=== PATIENT | male | born 1940 | race Caucasian/White ===

== ENCOUNTER 2019-08-24 12:38 | Inpatient (IN) ==
[2019-08-24 13:22] LABS: Basophils # (auto) 0.04 K/uL (0-0.2); Basophils % (auto) 0.3 %; Eosinophils # (auto) 0.05 K/uL (0-0.5); Eosinophils % (auto) 0.3 %; Hematocrit (blood only) 40.2 % (42-52); Hemoglobin 12.6 g/dL (14.0-18.0); Immature Granulocytes # (auto) 0.06 K/uL (0.00-0.02); Immature Granulocytes % (auto) 0.4 %; Lymphocytes # (auto) 1.45 K/uL (1.2-3.4); Mean Corpuscular Hemoglobin 26.3 pg (25-34); Mean Corpuscular Hgb Conc 31.3 g/dL (32-36); Mean Corpuscular Volume 83.8 fL (80-100); Mean Platelet Volume 9.3 fL (7.4-10.4); Monocytes % (auto) 6.2 %; Neutrophils # (auto) 12.01 K/uL (1.4-6.5); Neutrophils % (auto) 82.8 %; Platelet Count 277 K/uL (130-400); RDW Coefficient of Variation 16.9 % (11.5-14.5); RDW Standard Deviation 51.5 fL (36.4-46.3); White Blood Count 14.51 K/uL (4.8-10.8)
[2019-08-24 13:33] LABS: Partial Thromboplastin Ratio 0.9; Partial Thromboplastin Time 23.1 Seconds (21.0-31.0); Prothrombin Time 10.4 Seconds (9.0-12.0)
[2019-08-24 13:39] LABS: Albumin Level 3.5 gm/dl (3.4-5.0); Calcium 9.3 mg/dl (8.5-10.1); Creatinine Clr Calc Pharmacy 57.2 ml/min; Est GFR (African American) 69.3; Est GFR (Non-African American) 59.8; Potassium 3.9 mmol/L (3.5-5.1)
[2019-08-24 13:44] LABS: Albumin Globulin Ratio 0.9 (0.9-2); Bilirubin,Total 0.4 mg/dl (0.2-1); Globulin 4.1 gm/dl (2.5-4.0); Total Protein 7.6 gm/dl (6.4-8.2); Troponin I 0.022 ng/ml (0-0.045)
[2019-08-24] MEDS ORDERED: IOVERSOL 100ml IV PRN (13:53)
--- NOTE | 2019-08-24 14:07 | CT Scan Report ---
CT angio chest PE protocol CT DOSE: 524.77 mGycm HISTORY: Dyspnea Persistent hemoptysis with recent travel TECHNIQUE: Multiaxial CT images of the chest were performed following the intravenous administration of contrast to evaluate the pulmonary arteries. Maximal intensity projection images were also obtaine d. A dose lowering technique was utilized adhering to the principles of ALARA. COMPARISON STUDY: None. FINDINGS: Thoracic aorta shows minimal atherosclerotic change. The pulmonary vasculature enhances appropriately. There are no filling defects. There are findings of a diffuse parenchymal infiltrate involving the right lower lobe. There is less prominent involvement and/or atelectatic change of the components of the right middle lobe. Lungs otherwise appear clear. IMPRESSION: 1. No evidence for pulmonary embolus. 2. Diffuse parenchymal infiltrate of the right lower lobe and to a lesser extent medial right middle lobe. The above report was generated using voice recognition software. It may contain grammatical, syntax or spelling errors. Electronically signed by: Gus Mcnally M.D. 08/24/2019 2:06 PM
[2019-08-24] MEDS ORDERED: cefTRIAXone SODIUM 1,000 MG/50 ML BAG IV STA (15:05)
[2019-08-24] MEDS ORDERED: LEVOFLOXACIN/D5W 750 MG/150 ML BAG IV SCH (15:15)
[2019-08-24 16:16] LABS: Influenza A virus by PCR Neg for Influ A (Neg); Influenza B virus by PCR Neg for Influ B (Neg)
--- NOTE | 2019-08-24 16:39 | XRay Report ---
XR chest 1V portable CLINICAL HISTORY: Dyspnea COMPARISON STUDY: CT scan dated 08/24/2019 FINDINGS: The heart is enlarged. There are old right-sided rib fractures. There is radiographic evide nce of emphysema.[There are right lower lobe airspace opacities, suspicious for pneumonia. Films subs equent to treatment are recommended in follow-up. There is blunting of the right lateral costophrenic angle and a trace effusion cannot be excluded. IMPRESSION: 1. Cardiomegaly and pulmonary emphysema 2. Right lower lung zone airspace opacity suspicious for a pneumonia. Imaging subsequent to treatment is recommended in follow-up Electronically signed by: Augustine Sepulveda M.D. 08/24/2019 4:38 PM
--- NOTE | 2019-08-24 16:49 | History & Physical Report ---
Date of Service August 24, 2019 Assessment & Plan (1) Hemoptysis: (2) Pneumonia: Pt is 78 y/o M with PMH COPD on 2L oxygen HS, CAD, SD s/p stents x 4 (11/17/08 & 11/29/2009), HTN, dyslipidemia, hypothyroidism, GERD, gout, hypothyroidism, basal cell skin carcinoma presented to ER with complaint of hemoptysis today. Reports approx 13 episodes of hemoptysis starting with pink tinged sputum and last episode red blood clot. Patient reports chronic baseline white productive cough and denies any increased cough or sputum production. Denies fever/chills increased SOB or CP. In ER pt afebrile, P: 96 down to 73, R: 18, BP: 148/67, 90-93% on RA. WBC: 14, H/H: 12.6/40, PLT: 277, PT/INR and PTT WNL Negative influenza swab CTA CHEST: 1. No evidence for pulmonary embolus. 2. Diffuse parenchymal infiltrate of the right lower lobe and to a lesser extent medial right middle lobe. -In ER given Rocephin, Levaquin -MRSA swab -Sputum culture -Rocephin, azithromycin -Duonebs -Closely monitor for increased hemoptysis -Pulmonology consult -CBC, BMP in a.m. (3) COPD (chronic obstructive pulmonary disease): O2 dependent at 2 L at bedtime Denies increased shortness of breath, increased cough or sputum production. Patient reports chronic wheezing at baseline and feels he is at his baseline -Duonebs -Continue chronic prednisone 10 mg daily -Continue Singulair, home inhalers, however will hold Spiriva since on duonebs -Hold home azithromycin -Continue supplemental oxygen at bedtime -Supplemental oxygen as needed (4) Diabetes mellitus, type II: -A1c in a.m. -Hold metformin -NovoLog sliding scale per protocol (5) CAD (coronary artery disease): H/O SD. S/P stent x 4 in 11/17/2008, 11/29/[address] changes, troponin 0 0.02. Denies chest pain -Continue isosorbide, metoprolol, Crestor -Continue Plavix, aspirin with close monitoring for any increased hemoptysis (6) HTN (hypertension): -Continue lisinopril, metoprolol (7) Dyslipidemia: -Continue Crestor (8) Hypothyroidism: -TSH in a.m. -Continue levothyroxine (9) Gout: -Continue allopurinol (10) GERD (gastroesophageal reflux disease): -Continue PPI DVT Prophylaxis -SCDs for now Full Code as per discussion with pt Follows with Dr Minh Lucio in [place] for routine care Follows with Dr Vargas Clarke in [place] for pulmonology Pt was seen and care coordinated with Dr Rubio. See addendum History of Present Illness Chief Complaint: Hemoptysis Primary Care Provider: Minh Lucio MD Pt is 78 y/o M with PMH COPD on 2L oxygen HS, CAD, SD s/p stents x 4 (11/17/08 & 11/29/2009), HTN, dyslipidemia, hypothyroidism, GERD, gout, hypothyroidism, basal cell skin carcinoma presented to ER with complaint of hemoptysis. Patient reports chronic baseline white productive cough and denies any increased cough o r sputum production. Patient states today started with hemoptysis which appeared to be pink-tinged mixed in sputum approximately the size of a quarter and has had approximately 13 episodes of this. Reports last episode of hemoptysis appeared like red blood clot. Denies any increased shortness of breath. Reports chronic wheezing at baseline. States during day oxygen sats on home pulse oximeter are 92-93% on room air. Denies any chest pain. Patient reports recently COPD has seemed controlled and has not had to use albuterol for 1 month. States last COPD flare was in November 2018 which required hospitalization. Has been on chronic prednisone 10 mg daily and Zithromax 250 mg 3 times a week. Patient is from [place] and traveled to [place] 08/17/2019 and reports took 2 days [address] time in car with frequent stops. Denies history DVT, PE. Denies recent surgery, injury, trauma. Reports chronic intermittent loose stools, denies any recent changes or melena, hematochezia. Denies ill contacts. Denies fever/chills, diaphoresis, N/V/C, ELISE, dizziness, syncope, vision changes, neck pain, palpitations, sore throat, choking, otalgia, rhinorrhea, abdominal pain, paresthesias, weakness, extremity weakness, extremity edema, rashes, urinary symptoms. Quit smoking 10 years ago. Previous 1.5ppd x 50 years PCP: Dr Lucio Wet Process Assistant Head Miller: Dr Clarke Audio Visual Specialist: Dr Riley Allergies Allergy/AdvReac Type Severity Reaction Status Date / Time beclomethasone [From Qvar] Allergy Unknown Unverified 08/24/19 15:09 oxycodone Allergy Hallucinati Unverified 08/24/19 15:09 ng pravastatin [From Pravachol] AdvReac Cramping Unverified 08/24/19 15:09 of the Muscles Home Medications Home Medications Medication Instructions Recorded Confirmed Type Oxygen Home 08/24/19 08/24/19 History albuterol sulfate 2 puff INHALATION Q6H PRN 08/24/19 08/24/19 History albuterol sulfate 2.5 mg INHALATION QID PRN 08/24/19 08/24/19 History allopurinol 300 mg PO QAM 08/24/19 08/24/19 History aspirin 81 mg PO QAM 08/24/19 08/24/19 History azithromycin 250 mg PO UD 08/24/19 08/24/19 History cholecalciferol (vitamin D3) 5,000 unit PO QAM 08/24/19 08/24/19 History [Vitamin D3] clopidogrel 75 mg PO QAM 08/24/19 08/24/19 History fluticasone propion-salmeterol 1 inh INHALATION BID 08/24/19 08/24/19 History [Advair Diskus] guaifenesin 1,200 mg PO BID 08/24/19 08/24/19 History isosorbide mononitrate 30 mg PO QAM 08/24/19 08/24/19 History levothyroxine 150 mcg PO QAM 08/24/19 08/24/19 History lisinopril 20 mg PO QAM 08/24/19 08/24/19 History metformin 1,000 mg PO BIDM 08/24/19 08/24/19 History metoprolol succinate 50 mg PO QAM 08/24/19 08/24/19 History montelukast [Singulair] 10 mg PO PM 08/24/19 08/24/19 History pantoprazole [Protonix] 40 mg PO HS 08/24/19 08/24/19 History prednisone 10 mg PO QAM 08/24/19 08/24/19 History roflumilast [Daliresp] 250 mcg PO QAM 08/24/19 08/24/19 History rosuvastatin [Crestor] 10 mg PO UD 08/24/19 08/24/19 History tiotropium bromide [Spiriva with 1 cap INHALATION DAILY 08/24/19 08/24/19 History HandiHaler] trazodone 50 mg PO HS 08/24/19 08/24/19 History vitamin B complex 1 cap PO QAM 08/24/19 08/24/19 History Past Med/Surg History Medical History (Updated 08/24/19 @ 16:55 by Susan Lee) CAD (coronary artery disease) COPD (chronic obstructive pulmonary disease) O2 at 2L HS Diabetes mellitus, type II Dyslipidemia GERD (gastroesophageal reflux disease) Gout History of SD (myocardial infarction) HTN (hypertension) Hypothyroidism Surgical History (Updated 08/24/19 @ 16:52 by Elenita Justin PA-C) H/O heart artery stent History of appendectomy History of cardiac cath 11/17/08, 11/29/2009 Reports stents x 4 History of cataract surgery right eye History of eye surgery left eye. foreign body Family History (Updated 08/24/19 @ 16:54 by Elenita Justin PA-C) Brother Diabetes Skin cancer Coronary heart disease Sister Coronary heart disease Social History (Updated 08/24/19 @ 16:55 by Elenita Justin PA-C) Preferred Language: Yakut Communication Ability: Effective Shipping Manager Required: No Beliefs That Will Affect Care: None marital status: Current Living Situation: Spouse current occupational status: retired Other Information That Helps Us Care for You: No Feels Safe at Home: Yes Safety Concerns: Feels Safe At This Time Smoking Status: Former smoker Smoking End Date: Quit 2008. Previously smoked 1.5ppd x 50 years ; Hx Alcohol Use: No Hx Substance Use: No Review of Systems Review of Systems: All systems reviewed & are unremarkable except as noted in HPI & below Physical Exam Physical Exam: General: no acute distress, WDWN Head: normocephalic, atraumatic Eyes: Left pupil irregular (chronic) R PERRL, EOM's intact, conjunctiva non- injected, anicteric ENT: normal inspection external ears, nose, mucous membranes moist Neck: supple, trachea midline Lungs: Scattered wheezing throughout, slightly diminished breath sounds right base, no respiratory distress, R: 20, 93% on RA CV: RRR, no murmur, no pretibial edema Abd: normal BS, soft, non-tender Ext: no cyanosis, no calf tenderness Neuro: A&O x 3, no focal deficits noted, normal affect Skin: warm, dry Results & Data Vital Signs (Past 12 Hours) Vital Signs Temp Pulse Pulse Resp BP BP Pulse Ox 08/24/19 16:30 80 17 91 08/24/19 16:20 93 08/24/19 16:10 76 22 94 08/24/19 16:01 73 18 92 08/24/19 16:00 73 20 155/90 H 93 08/24/19 15:50 74 23 94 08/24/19 15:40 73 23 93 08/24/19 15:34 73 19 93 08/24/19 15:33 36.6 C 73 19 144/82 H 92 08/24/19 15:30 72 22 94 08/24/19 15:20 72 20 94 08/24/19 15:10 72 17 91 08/24/19 15:00 71 21 08/24/19 14:50 74 18 08/24/19 14:48 73 18 145/78 H 08/24/19 14:40 73 18 92 08/24/19 14:39 73 16 145/78 H 93 08/24/19 14:30 72 24 92 08/24/19 14:20 76 19 93 08/24/19 14:10 76 23 94 08/24/19 14:03 78 20 93 08/24/19 13:40 75 20 08/24/19 13:30 77 21 08/24/19 13:20 79 19 08/24/19 13:16 79 22 08/24/19 13:05 93 08/24/19 12:41 36.6 C 96 H 18 148/67 H 90 Laboratory Results Short CBC 08/24/19 Range/Units 13:10 WBC 14.51 H (4.8-10.8) K/uL Hgb 12.6 L (14.0-18.0) g/dL Hct 40.2 L (42-52) % Plt Count 277 (130-400) K/uL BMP 08/24/19 13:10 Sodium 137 Potassium 3.9 Chloride 103 Carbon Dioxide 27 BUN 17 Creatinine 1.15 Glucose 108 H Calcium 9.3 Cardiac Enzymes 12/04/19 Range/Units 13:10 Troponin I 0.022 (0-0.045) ng/ml Liver Function 08/24/19 Range/Units 13:10 Total Bilirubin 0.4 (0.2-1) mg/dl AST 17 (15-37) U/L ALT 27 (12-78) U/L Alkaline Phosphatase 50 (45-117) U/L Albumin 3.5 (3.4-5.0) gm/dl Diagnostic Findings CTA CHEST: IMPRESSION: 1. No evidence for pulmonary embolus. 2. Diffuse parenchymal infiltrate of the right lower lobe and to a lesser extent medial right middle lobe. CXR: IMPRESSION: 1. Cardiomegaly and pulmonary emphysema 2. Right lower lung zone airspace opacity suspicious for a pneumonia. Imaging subsequent to treatment is recommended in follow-up ECG Rate (beats per minute): 77 Rhythm: sinus rhythm Findings: + LAFB Code Status & VTE Plan VTE Prophylaxis Plan VTE Prophylaxis will be ordered: Yes Supervising Physician Co-Signing Physician Notes I have seen and examined the patient and have discussed the case with the provider above. I agree with the assessment and plan as stated with the following exceptions. 78 yo M with COPD who is in the area from [facility] for a hunting trip presented with scant hemoptysis and was found to have pneumonia. He is not a current smoker. Denies wheezing, SOB or fevers and felt well enough to correa yesterday. Physical exam revealed a well-appearing man who appears younger than his stated age, clear lungs to auscultation throughout, normal heart exam with S1/2 heard and no evidence of m/g/r, no peripheral edema. Abdomen is soft, NTND. He appears spry and oriented. Agree with continuing Rocephin/Azithro for now and monitoring for clinical improvement/stability pending blood cultures. After discharge, patient has plans to drive back to [facility]. Close follow-up with primary care is recommended after discharge with a repeat CXR in 4-6 weeks to ensure complete resolution of infiltrates. DO Ramiro (1) Pneumonia Laterality: right Lung location: lower lobe of lung Pneumonia type: due to unspecified organism Qualified Code(s): J18.9 - Pneumonia, unspecified organism
--- NOTE | 2019-08-24 17:00 | Emergency Department Note ---
Entered by Susan Lee acting as a scribe for History of Present Illness General Chief complaint: GI Bleed Stated complaint: COUGHING UP BLOOD Source: patient Mode of arrival: ambulatory Limitations: no limitations History of Present Illness Provider complaint: Hemoptysis Onset (ago): hour(s) (today) Location: mouth Radiation: non-radiation Pain Consistency: + other (persistent) Quality: + other (hemoptysis) Associated symptoms: + shortness of breath (chronic) and + other (Denies: nosebleeds) Treatments prior to arrival: none The patient is an 78 year old male with a history of COPD and cardiac stents who presents to the Emergency Room with complaints of persistent hemoptysis starting today. The patient reports that he has had roughly 12 episodes of hemoptysis but no nosebleeds. He states that he is on Plavix for cardiac stents but otherwise has no history of cancer, blood clots, and clotting disorders. He notes that he is chronically short of breath secondary to COPD. The patient explains that he is visiting from [place] and drove up last week. No other exacerbating or remitting factors. Home Medications Home Medications Medication Instructions Recorded Confirmed Type Oxygen Home 08/24/19 08/24/19 History albuterol sulfate 2 puff INHALATION Q6H PRN 08/24/19 08/24/19 History albuterol sulfate 2.5 mg INHALATION QID PRN 08/24/19 08/24/19 History allopurinol 300 mg PO QAM 08/24/19 08/24/19 History aspirin 81 mg PO QAM 08/24/19 08/24/19 History azithromycin 250 mg PO UD 08/24/19 08/24/19 History cholecalciferol (vitamin D3) 5,000 unit PO QAM 08/24/19 08/24/19 History [Vitamin D3] clopidogrel 75 mg PO QAM 08/24/19 08/24/19 History fluticasone propion-salmeterol 1 inh INHALATION BID 08/24/19 08/24/19 History [Advair Diskus] guaifenesin 1,200 mg PO BID 08/24/19 08/24/19 History isosorbide mononitrate 30 mg PO QAM 08/24/19 08/24/19 History levothyroxine 150 mcg PO QAM 08/24/19 08/24/19 History lisinopril 20 mg PO QAM 08/24/19 08/24/19 History metformin 1,000 mg PO BIDM 08/24/19 08/24/19 History metoprolol succinate 50 mg PO QAM 08/24/19 08/24/19 History montelukast [Singulair] 10 mg PO PM 08/24/19 08/24/19 History pantoprazole [Protonix] 40 mg PO HS 08/24/19 08/24/19 History prednisone 10 mg PO QAM 08/24/19 08/24/19 History roflumilast [Daliresp] 250 mcg PO QAM 08/24/19 08/24/19 History rosuvastatin [Crestor] 10 mg PO UD 08/24/19 08/24/19 History tiotropium bromide [Spiriva with 1 cap INHALATION DAILY 08/24/19 08/24/19 History HandiHaler] trazodone 50 mg PO HS 08/24/19 08/24/19 History vitamin B complex 1 cap PO QAM 08/24/19 08/24/19 History Allergies Allergy/AdvReac Type Severity Reaction Status Date / Time beclomethasone [From Qvar] Allergy Unknown Unverified 08/24/19 15:09 oxycodone Allergy Hallucinati Unverified 08/24/19 15:09 ng pravastatin [From Pravachol] AdvReac Cramping Unverified 08/24/19 15:09 of the Muscles Past Med/Surg History Medical History (Updated 08/24/19 @ 16:55 by Susan Lee) CAD (coronary artery disease) COPD (chronic obstructive pulmonary disease) O2 at 2L HS Diabetes mellitus, type II Dyslipidemia GERD (gastroesophageal reflux disease) Gout History of AR (myocardial infarction) HTN (hypertension) Hypothyroidism Surgical History (Updated 08/24/19 @ 16:52 by Elenita Justin PA-C) H/O heart artery stent History of appendectomy History of cardiac cath 11/17/08, 11/29/2009 Reports stents x 4 History of cataract surgery right eye History of eye surgery left eye. foreign body Family History (Updated 08/24/19 @ 16:54 by Elenita Justin PA-C) Brother Diabetes Skin cancer Coronary heart disease Sister Coronary heart disease Social History (Updated 08/24/19 @ 16:55 by Elenita Justin PA-C) Preferred Language: Swiss Communication Ability: Effective Oven Heater Required: No Beliefs That Will Affect Care: None marital status: Current Living Situation: Spouse current occupational status: retired Other Information That Helps Us Care for You: No Feels Safe at Home: Yes Safety Concerns: Feels Safe At This Time Smoking Status: Former smoker Smoking End Date: Quit 2008. Previously smoked 1.5ppd x 50 years ; Hx Alcohol Use: No Hx Substance Use: No Review of Systems See HPI for pertinent positives & negatives. and A total of 10 systems reviewed and were otherwise negative Physical Exam Vital Signs Vital Signs - 24 hr 08/24/19 12:41 08/24/19 13:05 08/24/19 13:16 Temperature 36.6 C Temperature Source Oral Pulse Rate 96 H 79 Pulse Rate [Apical] Pulse Rate from SpO2 Sensor Pulse Rhythm Regular Respiratory Rate 18 22 Respiratory Effort / Characteristics Non-Labored Respiratory Depth Normal Respiratory Pattern Regular Blood Pressure 148/67 H Blood Pressure [Left Arm] Blood Pressure Mean 94 Blood Pressure Mean [Left Arm] Blood Pressure Position Sitting Pulse Oximetry 90 93 Oxygen Delivery Method Room Air Room Air Sepsis Recent Fever Within 48 Hours No Sepsis Action Taken by Nursing No Action Required 08/24/19 13:20 08/24/19 13:30 08/24/19 13:40 Temperature Temperature Source Pulse Rate 79 77 75 Pulse Rate [Apical] Pulse Rate from SpO2 Sensor Pulse Rhythm Respiratory Rate 19 21 20 Respiratory Effort / Characteristics Respiratory Depth Respiratory Pattern Blood Pressure Blood Pressure [Left Arm] Blood Pressure Mean Blood Pressure Mean [Left Arm] Blood Pressure Position Pulse Oximetry Oxygen Delivery Method Sepsis Recent Fever Within 48 Hours Sepsis Action Taken by Nursing 08/24/19 14:03 08/24/19 14:10 08/24/19 14:20 Temperature Temperature Source Pulse Rate 78 76 76 Pulse Rate [Apical] Pulse Rate from SpO2 Sensor 80 77 76 Pulse Rhythm Respiratory Rate 20 23 19 Respiratory Effort / Characteristics Respiratory Depth Respiratory Pattern Blood Pressure Blood Pressure [Left Arm] Blood Pressure Mean Blood Pressure Mean [Left Arm] Blood Pressure Position Pulse Oximetry 93 94 93 Oxygen Delivery Method Sepsis Recent Fever Within 48 Hours Sepsis Action Taken by Nursing 08/24/19 14:30 08/24/19 14:39 08/24/19 14:40 Temperature Temperature Source Pulse Rate 72 73 Pulse Rate [Apical] 73 Pulse Rate from SpO2 Sensor 73 72 Pulse Rhythm Respiratory Rate 24 16 18 Respiratory Effort / Characteristics Respiratory Depth Respiratory Pattern Blood Pressure Blood Pressure [Left Arm] 145/78 H Blood Pressure Mean Blood Pressure Mean [Left Arm] 100 Blood Pressure Position Pulse Oximetry 92 93 92 Oxygen Delivery Method Room Air Sepsis Recent Fever Within 48 Hours Sepsis Action Taken by Nursing 08/24/19 14:48 08/24/19 14:50 08/24/19 15:00 Temperature Temperature Source Pulse Rate 73 74 71 Pulse Rate [Apical] Pulse Rate from SpO2 Sensor Pulse Rhythm Respiratory Rate 18 18 21 Respiratory Effort / Characteristics Respiratory Depth Respiratory Pattern Blood Pressure 145/78 H Blood Pressure [Left Arm] Blood Pressure Mean 97 Blood Pressure Mean [Left Arm] Blood Pressure Position Pulse Oximetry Oxygen Delivery Method Sepsis Recent Fever Within 48 Hours Sepsis Action Taken by Nursing 08/24/19 15:10 08/24/19 15:20 08/24/19 15:30 Temperature Temperature Source Pulse Rate 72 72 72 Pulse Rate [Apical] Pulse Rate from SpO2 Sensor 72 73 70 Pulse Rhythm Respiratory Rate 17 20 22 Respiratory Effort / Characteristics Respiratory Depth Respiratory Pattern Blood Pressure Blood Pressure [Left Arm] Blood Pressure Mean Blood Pressure Mean [Left Arm] Blood Pressure Position Pulse Oximetry 91 94 94 Oxygen Delivery Method Sepsis Recent Fever Within 48 Hours Sepsis Action Taken by Nursing 08/24/19 15:33 08/24/19 15:34 08/24/19 15:40 Temperature 36.6 C Temperature Source Pulse Rate 73 73 73 Pulse Rate [Apical] Pulse Rate from SpO2 Sensor 71 73 73 Pulse Rhythm Respiratory Rate 19 19 23 Respiratory Effort / Characteristics Respiratory Depth Respiratory Pattern Blood Pressure 144/82 H Blood Pressure [Left Arm] Blood Pressure Mean 96 Blood Pressure Mean [Left Arm] Blood Pressure Position Pulse Oximetry 92 93 93 Oxygen Delivery Method Room Air Sepsis Recent Fever Within 48 Hours Sepsis Action Taken by Nursing 08/24/19 15:50 08/24/19 16:00 08/24/19 16:01 Temperature Temperature Source Pulse Rate 74 73 73 Pulse Rate [Apical] Pulse Rate from SpO2 Sensor 73 74 73 Pulse Rhythm Respiratory Rate 23 20 18 Respiratory Effort / Characteristics Respiratory Depth Respiratory Pattern Blood Pressure 155/90 H Blood Pressure [Left Arm] Blood Pressure Mean 118 Blood Pressure Mean [Left Arm] Blood Pressure Position Pulse Oximetry 94 93 92 Oxygen Delivery Method Sepsis Recent Fever Within 48 Hours Sepsis Action Taken by Nursing 08/24/19 16:10 08/24/19 16:20 08/24/19 16:30 Temperature Temperature Source Pulse Rate 76 80 Pulse Rate [Apical] Pulse Rate from SpO2 Sensor 76 75 77 Pulse Rhythm Respiratory Rate 22 17 Respiratory Effort / Characteristics Respiratory Depth Respiratory Pattern Blood Pressure Blood Pressure [Left Arm] Blood Pressure Mean Blood Pressure Mean [Left Arm] Blood Pressure Position Pulse Oximetry 94 93 91 Oxygen Delivery Method Sepsis Recent Fever Within 48 Hours Sepsis Action Taken by Nursing GENERAL: Sitting up in bed, talking in full sentences, blood covered tissues EYE EXAM: normal conjunctiva OROPHARYNX: no exudate, no erythema, lips, buccal mucosa, and tongue normal and mucous membranes are moist NECK: supple, no nuchal rigidity, no adenopathy, non-tender LUNGS: Wheezing bilaterally. Normal chest wall mechanics HEART: no murmurs, S1 normal and S2 normal ABDOMEN: abdomen soft, non-tender, normo-active bowel sounds, no masses, no rebound or guarding. BACK: Back is symmetrical on inspection and there is no deformity, no midline tenderness, no CVA tenderness. SKIN: no rashes and no bruising UPPER EXTREMITIES: upper extremities are grossly normal. LOWER EXTREMITIES: No pitting edema. NEURO EXAM: Normal sensorium, cranial nerves II-XII grossly intact, normal speech, no gross weakness of arms, no gross weakness of legs. Gross sensation intact. Course Course ED COURSE: Vital signs were reviewed and showed hypertension. The patients medical record was reviewed The above diagnostic studies were performed and reviewed. ED treatments and interventions as stated above. 1301: The patient was evaluated in room B2. A complete history and physical examination was performed. 1453: I reviewed the patient's case with Steven Diaz PA-C. Dr. Rubio will evaluate the patient for further management. 1455: Upon reevaluation, the patient is resting. I discussed my findings with the patient and he understands and agrees with the treatment plan. Based on the patients age, coexisting illnesses, exam and lab findings the decision to treat as an inpatient was made. The patient remained stable while under my care. The patient will be evaluated for further management. Consultations Consultation #1: I reviewed the patient's case with Steven Diaz PA-C. Dr. Rubio will evaluate the patient for further management. Time: 14:53 Administered Medications Levofloxacin/Dextrose (Levaquin/D5w) 750 mg in 150 mls @ 100 mls/hr IV Q24H JAMES Stop: 10/05/19 15:14 Last Infusion: 08/24/19 16:57 Dose: 0 mls/hr Documented by: [id number] Admin: 08/24/19 15:23 Dose: 100 mls/hr Documented by: [id number] Ioversol (Optiray 320 100ml) 94 ml IV ONCE PRN PRN Reason: Interaction Checking Stop: 08/28/19 13:52 Last Admin: 08/24/19 13:53 Dose: 94 ml Documented by: [id number] Discontinued Medications Ceftriaxone Sodium (Rocephin) 1,000 mg in 50 mls @ 100 mls/hr IV NOW STA Stop: 08/24/19 15:34 Last Infusion: 08/24/19 15:59 Dose: 0 mls/hr Documented by: [id number] Admin: 08/24/19 15:23 Dose: 100 mls/hr Documented by: [id number] Medical Decision Making Differential Diagnosis Differential diagnosis: Etiologies such as infections, reactive airway disease, pneumonia, pneumothorax, COPD, CHF, cardiac ischemia, pulmonary embolism, musculoskeletal, gastrointestinal, as well as others were entertained. Medical Records Attestation: I reviewed the patient's medical records. Home Medications Current Medication List: was personally reviewed by me Laboratory Data Attestation: I reviewed the patient's lab results. Result diagrams: 08/24/19 13:10 08/24/19 13:10 Lab Results 08/24/19 08/24/19 08/24/19 Range/Units 13:10 13:10 13:10 WBC 14.51 H (4.8-10.8) K/uL RBC 4.80 (4.7-6.1) M/uL Hgb 12.6 L (14.0-18.0) g/dL Hct 40.2 L (42-52) % MCV 83.8 (80-100) fL MCH 26.3 (25-34) pg MCHC 31.3 L (32-36) g/dL RDW Std Deviation 51.5 H (36.4-46.3) fL RDW Coeff of Artemio 16.9 H (11.5-14.5) % Plt Count 277 (130-400) K/uL MPV 9.3 (7.4-10.4) fL Immature Gran % (Auto) 0.4 % Neut % (Auto) 82.8 % Lymph % (Auto) 10.0 % [place] % (Auto) 6.2 % Eos % (Auto) 0.3 % Baso % (Auto) 0.3 % Immature Gran # (Auto) 0.06 H (0.00-0.02) K/uL Neut # (Auto) 12.01 H (1.4-6.5) K/uL Lymph # (Auto) 1.45 (1.2-3.4) K/uL [place] # (Auto) 0.90 H (0.11-0.59) K/uL Eos # (Auto) 0.05 (0-0.5) K/uL Baso # (Auto) 0.04 (0-0.2) K/uL PT 10.4 (9.0-12.0) Seconds INR 1.0 (0.9-1.1) APTT 23.1 (21.0-31.0) Seconds PTT Ratio 0.9 Sodium 137 (136-145) mmol/L Potassium 3.9 (3.5-5.1) mmol/L Chloride 103 (98-107) mmol/L Carbon Dioxide 27 (21-32) mmol/L Anion Gap 7.0 (3-11) BUN 17 (7-18) mg/dl Creatinine 1.15 (0.6-1.4) mg/dl Est Cr Clr Drug Dosing 57.2 ml/min Est GFR ( Amer) 69.3 Est GFR (Non-Af Amer) 59.8 BUN/Creatinine Ratio 15.0 (10-20) Glucose 108 H (70-99) mg/dl Calcium 9.3 (8.5-10.1) mg/dl Total Bilirubin 0.4 (0.2-1) mg/dl AST 17 (15-37) U/L ALT 27 (12-78) U/L Alkaline Phosphatase 50 (45-117) U/L Troponin I 0.022 (0-0.045) ng/ml Total Protein 7.6 (6.4-8.2) gm/dl Albumin 3.5 (3.4-5.0) gm/dl Globulin 4.1 H (2.5-4.0) gm/dl Albumin/Globulin Ratio 0.9 (0.9-2) Influenza Type A (PCR) (Neg) Influenza Type B (PCR) (Neg) 08/24/19 Range/Units 15:33 WBC (4.8-10.8) K/uL RBC (4.7-6.1) M/uL Hgb (14.0-18.0) g/dL Hct (42-52) % MCV (80-100) fL MCH (25-34) pg MCHC (32-36) g/dL RDW Std Deviation (36.4-46.3) fL RDW Coeff of Artemio (11.5-14.5) % Plt Count (130-400) K/uL MPV (7.4-10.4) fL Immature Gran % (Auto) % Neut % (Auto) % Lymph % (Auto) % [place] % (Auto) % Eos % (Auto) % Baso % (Auto) % Immature Gran # (Auto) (0.00-0.02) K/uL Neut # (Auto) (1.4-6.5) K/uL Lymph # (Auto) (1.2-3.4) K/uL [place] # (Auto) (0.11-0.59) K/uL Eos # (Auto) (0-0.5) K/uL Baso # (Auto) (0-0.2) K/uL PT (9.0-12.0) Seconds INR (0.9-1.1) APTT (21.0-31.0) Seconds PTT Ratio Sodium (136-145) mmol/L Potassium (3.5-5.1) mmol/L Chloride (98-107) mmol/L Carbon Dioxide (21-32) mmol/L Anion Gap (3-11) BUN (7-18) mg/dl Creatinine (0.6-1.4) mg/dl Est Cr Clr Drug Dosing ml/min Est GFR ( Amer) Est GFR (Non-Af Amer) BUN/Creatinine Ratio (10-20) Glucose (70-99) mg/dl Calcium (8.5-10.1) mg/dl Total Bilirubin (0.2-1) mg/dl AST (15-37) U/L ALT (12-78) U/L Alkaline Phosphatase (45-117) U/L Troponin I (0-0.045) ng/ml Total Protein (6.4-8.2) gm/dl Albumin (3.4-5.0) gm/dl Globulin (2.5-4.0) gm/dl Albumin/Globulin Ratio (0.9-2) Influenza Type A (PCR) Neg for Influ A (Neg) Influenza Type B (PCR) Neg for Influ B (Neg) Imaging Data Radiologist's Impression: Radiology results as stated below per my review and the radiologist's interpretation: XR chest 1V portable CLINICAL HISTORY: Dyspnea COMPARISON STUDY: CT scan dated 08/24/2019 FINDINGS: The heart is enlarged. There are old right-sided rib fractures. There is radiographic evidence of emphysema.[There are right lower lobe airspace opacities, suspicious for pneumonia. Films subsequent to treatment are recommended in follow-up. There is blunting of the right lateral costophrenic angle and a trace effusion cannot be excluded. IMPRESSION: 1. Cardiomegaly and pulmonary emphysema 2. Right lower lung zone airspace opacity suspicious for a pneumonia. Imaging subsequent to treatment is recommended in follow-up Electronically signed by: Augustine Sepulveda M.D. 08/24/2019 4:[address] angio chest PE protocol CT DOSE: 524.77 mGycm HISTORY: Dyspnea Persistent hemoptysis with recent travel TECHNIQUE: Multiaxial CT images of the chest were performed following the intravenous administration of contrast to evaluate the pulmonary arteries. Maximal intensity projection images were also obtained. A dose lowering technique was utilized adhering to the principles of ALARA. COMPARISON STUDY: None. FINDINGS: Thoracic aorta shows minimal atherosclerotic change. The pulmonary vasculature enhances appropriately. There are no filling defects. There are findings of a diffuse parenchymal infiltrate involving the right lower lobe. There is less prominent involvement and/or atelectatic change of the components of the right middle lobe. Lungs otherwise appear clear. IMPRESSION: 1. No evidence for pulmonary embolus. 2. Diffuse parenchymal infiltrate of the right lower lobe and to a lesser extent medial right middle lobe. The above report was generated using voice recognition software. It may contain grammatical, syntax or spelling errors. Electronically signed by: Gus Mcnally M.D. 08/24/2019 2:06 PM ECG Data Attestation: I personally reviewed and interpreted this ECG as follows: Indication: + other (GI bleed) Rate (beats per minute): 77 Rhythm: + sinus rhythm ECG Intervals/blocks: + Normal QT-c ECG [place]: + Normal ECG Findings: no PVCs Blood Pressure Blood Pressure Findings: Elevated blood pressure Blood Pressure Disposition: further management by hospitalist GOVIND Narrative Patient is an 78-year-old male that presents the ER for hemoptysis. He takes Plavix daily for previous stents. IV was established blood work was obtained. Labs show a leukocytosis of 14,000. No significant anemia. INR was unremarkable. BMP with LFTs bilirubin was unremarkable. Troponin was detectable at 0.022. Influenza was negative. Chest x-ray without any focal infiltrate. CTA shows right middle and right lower lobe infiltrates. With the persistent hemoptysis. He was placed on Rocephin and Levaquin. Discussed with the hospitalist patient was updated bedside for observation. Impression & Plan Hemoptysis, Pneumonia, Shortness of breath Discharge Plan Visit Data Chief Complaint: GI Bleed Stated Complaint: COUGHING UP BLOOD ED Provider: Darrel Quinn Discharge Problem: Hemoptysis, Pneumonia, Shortness of breath Patient Disposition: Admitted As Inpatient Forms Stand Alone Forms: [facility] Prescriptions Prescriptions: No Action prednisone 10 mg Tablet 10 mg PO QAM RF: 0 trazodone 50 mg Tablet 50 mg PO HS RF: 0 azithromycin 250 mg Tablet 250 mg PO UD RF: 0 metoprolol succinate 50 mg Tablet Extended Release 24 Hr 50 mg PO QAM RF: 0 lisinopril 20 mg Tablet 20 mg PO QAM RF: 0 isosorbide mononitrate 30 mg Tablet Extended Release 24 Hr 30 mg PO QAM RF: 0 clopidogrel 75 mg Tablet 75 mg PO QAM RF: 0 aspirin 81 mg Tablet,Delayed Release (Dr/Ec) 81 mg PO QAM RF: 0 pantoprazole [Protonix] 40 mg Tablet,Delayed Release (Dr/Ec) 40 mg PO HS RF: 0 metformin 1,000 mg Tablet 1,000 mg PO BIDM RF: 0 levothyroxine 150 mcg Tablet 150 mcg PO QAM RF: 0 fluticasone propion-salmeterol [Advair Diskus] 500-50 mcg/dose Blister With Device 1 inh INHALATION BID RF: 0 montelukast [Singulair] 10 mg Tablet 10 mg PO PM RF: 0 allopurinol 300 mg Tablet 300 mg PO QAM RF: 0 vitamin B complex Capsule 1 cap PO QAM RF: 0 rosuvastatin [Crestor] 10 mg Tablet 10 mg PO UD RF: 0 Spiriva with HandiHaler 18 mcg Capsule, W/Inhalation Device 1 cap INHALATION DAILY RF: 0 cholecalciferol (vitamin D3) [Vitamin D3] 125 mcg (5,000 unit) Tablet 5,000 unit PO QAM RF: 0 Daliresp 250 mcg Tablet 250 mcg PO QAM RF: 0 (DME) Oxygen Home Liters Per Minute RF: 0 albuterol sulfate 2.5 mg /3 mL (0.083 %) Solution For Nebulization 2.5 mg INHALATION QID PRN (Reason: Shortness Of Breath Or Wheezing) RF: 0 albuterol sulfate 90 mcg/actuation Hfa Aerosol Inhaler 2 puff INHALATION Q6H PRN (Reason: Shortness Of Breath Or Wheezing) RF: 0 guaifenesin 1,200 mg Tablet Extended Release 12hr 1,200 mg PO BID RF: 0 Referrals Referrals: Mihn Lucio MD [Primary Care Provider] - Discharge Problem: Pneumonia Qualifiers: Pneumonia type: due to unspecified organism Laterality: right Lung location: lower lobe of lung Qualified Code(s): J18.9 - Pneumonia, unspecified organism The scribe's documentation has been prepared under my direction and personally reviewed by me in its entirety. I confirm that the note above accurately reflects all work, treatment, procedures, and medical decision making performed by me.
[2019-08-24] MEDS ORDERED: GLUCAGON FOR INJ 1 MG VIAL SQ PRN (18:26)
[2019-08-24] MEDS ORDERED: ACETAMINOPHEN 325 MG TAB PO PRN (18:26)
[2019-08-24] MEDS ORDERED: DEXTROSE 50% 50 ML SYRINGE IV PRN (18:26)
[2019-08-24] MEDS ORDERED: GLUCOSE 40% GEL 15 GM TUBE PO PRN (18:26)
[2019-08-24] MEDS ORDERED: GLUCOSE 10 TABS/TUBE PO PRN (18:26)
[2019-08-24] MEDS ORDERED: CARBOHYDRATES FOR HYPOGLYCEMIA PO PRN (18:26)
[2019-08-24] MEDS: ALBUT/IPRATROP 3MG/0.5MG NEB 3 ML VIAL NEB SCH (19:28)
[2019-08-24] MEDS: FLUTICASONE/SALMETEROL (ADVAIR) 500/50 INH 14 PUFF INH SCH (20:54)
[2019-08-24] MEDS: guaiFENesin 600 MG TABCR PO SCH (20:55)
[2019-08-24] MEDS: INSULIN ASPART 100 UNITS/ML 3 ML PEN SC SCH (20:56)
[2019-08-24] MEDS ORDERED: ROSUVASTATIN CALCIUM 10 MG TAB PO SCH (21:00)
[2019-08-24] MEDS ORDERED: MONTELUKAST SODIUM 10 MG TABLET PO SCH (21:00)
[2019-08-24] MEDS ORDERED: TRAZODONE HCL 50 MG TAB PO SCH (21:00)
[2019-08-24] MEDS ORDERED: PANTOprazole 40 MG TAB PO SCH (21:00)
[2019-08-24 23:28] LABS: Appearance Urine Clear (Clear); Bacteria Urine Automated Negative (Negative); Bilirubin Urine Negative (Negative); Blood Urine Negative (Negative); Cast Urine Automated 0 /lpf (0-5); Color Urine Yellow; Glucose Urine UA Negative (Negative); Ketones Urine Negative (Negative); Leukocyte Esterase Urine Negative (Negative); Nitrite Urine Negative (Negative); Protein Urine 1+ (Negative); RBC Urine Automated 0-4 /hpf (0-4); Specific Gravity Urine 1.015 (1.000-1.030); Urobilinogen Urine Negative (Negative); WBC Urine Automated 0 /hpf (0-5)
[2019-08-25] MEDS ORDERED: LEVOTHYROXINE SODIUM 150 MCG TABLET PO SCH (06:30)
[2019-08-25] MEDS ORDERED: LEVOTHYROXINE SODIUM 137 MCG TABLET PO SCH (06:30)
[2019-08-25] MEDS: ALBUT/IPRATROP 3MG/0.5MG NEB 3 ML VIAL NEB SCH ×3 (07:09→15:12)
[2019-08-25 07:34] LABS: Basophils # (auto) 0.01 K/uL (0-0.2); Basophils % (auto) 0.1 %; Eosinophils # (auto) 0.06 K/uL (0-0.5); Eosinophils % (auto) 0.5 %; Hemoglobin 11.9 g/dL (14.0-18.0); Immature Granulocytes # (auto) 0.05 K/uL (0.00-0.02); Immature Granulocytes % (auto) 0.4 %; Lymphocytes # (auto) 2.85 K/uL (1.2-3.4); Lymphocytes % (auto) 24.1 %; Mean Corpuscular Hemoglobin 25.6 pg (25-34); Mean Corpuscular Hgb Conc 31.3 g/dL (32-36); Mean Corpuscular Volume 81.7 fL (80-100); Mean Platelet Volume 9.4 fL (7.4-10.4); Monocytes # (auto) 1.18 K/uL (0.11-0.59); Neutrophils # (auto) 7.66 K/uL (1.4-6.5); Neutrophils % (auto) 64.9 %; Platelet Count 238 K/uL (130-400); RDW Coefficient of Variation 17.1 % (11.5-14.5); RDW Standard Deviation 50.4 fL (36.4-46.3); Red Blood Count 4.65 M/uL (4.7-6.1); White Blood Count 11.81 K/uL (4.8-10.8)
[2019-08-25] MEDS: guaiFENesin 600 MG TABCR PO SCH (07:37)
[2019-08-25] MEDS: FLUTICASONE/SALMETEROL (ADVAIR) 500/50 INH 14 PUFF INH SCH (07:40)
[2019-08-25 07:49] LABS: Estimated Average Glucose 137 mg/dl; Hemoglobin A1C 6.4 % (4.5-5.6)
[2019-08-25 08:14] LABS: BUN Creatinine Ratio 13.8 (10-20); Calcium 9.2 mg/dl (8.5-10.1); Creatinine Clr Calc Pharmacy 49.5 ml/min; Est GFR (African American) 63.9; Est GFR (Non-African American) 55.1
[2019-08-25 08:25] LABS: Thyroid Stimulating Hormone 0.612 uIu/ml (0.300-4.500)
--- NOTE | 2019-08-25 08:39 | Pulmonary Consultation ---
Date of Consultation August 25, 2019 Assessment & Plan (1) Hemoptysis: Impression: 78-year-old male with COPD, advanced by history but PFTs not available. He is admitted with hemoptysis and does have some patchy infiltrates in his right lower lobe which may be consistent with a blood pneumonia. He does have fairly extensive bronchiectasis in the right middle lobe and is unclear whether this is new or old. This likely represents an acute exacerbation of his bronchiectasis. He is a mopped assist has been small-volume and has now resolved. Recommendations: 1. Hemoptysis: Suspect related to an infectious etiology of the lower respiratory tract. It has resolved currently. I recommended treating him with a full course of antibiotics. He can transition to an oral second-generation cephalosporin and azithromycin. As his hemoptysis was small-volume and is now resolved, I do not think bronchoscopy is currently warranted. In addition the patient would like to return back to [place] and establish care with his metal fabricating inspector there. I recommended that he get copies of the CT scan performed here to take with him and follow-up with his metal fabricating inspector once he arrives back. Additional evaluation of his bronchiectasis can be conducted by his metal fabricating inspector at home 2. COPD: Patient does not appear overtly bronchospastic currently. Continue current inhaler regiment as well as antibiotics. No indication for systemic steroids currently. 3. Nocturnal hypoxemia: Continue supplemental oxygen titrated to keep saturations at or above 88%. 4. From a pulmonary perspective, the patient is safe to discharge from the hospital with outpatient follow-up with his primary care provider and metal fabricating inspector back in [place]. Thanks for the opportunity of participating in the care of Mr. Pleitez. Feel free to contact us if we can be of additional assistance. (2) Pneumonia: Laterality: right Lung location: lower lobe of lung Pneumonia type: due to unspecified organism Qualified Code(s): J18.9 - Pneumonia, unspecified organism (3) COPD (chronic obstructive pulmonary disease): History of Present Illness Attending Physician: Edil Salvador MD History of Present Illness Asked by hospitalist service to evaluate this patient admitted with hemoptysis. History is obtained from review electronic medical record as well as interview the patient at bedside. The patient is an 78-year-old male who is under the care of a metal fabricating inspector in [place]. He is here visiting his sister and came to participate in some deer hunting activities. He is on a variety of outpatient medications for his COPD. He was doing well up until yesterday morning when he coughed up a quarter size ball of phlegm with blood in it. He states the blood was quite red at that point time. He had an additional 10 or so episodes during the day of coughing up these a small amounts of blood which prompted him to be seen in the emergency room. Last time he coughed up any blood was about 5 PM last night. He is not on blood thinners chronically. He denies fevers chills or night sweats. He had not been feeling poorly prior to this episode and currently states that he feels much better than he did yesterday. He has not had increase in his shortness of breath or wheezing. No significant lower extremity edema. He is never experi enced hemoptysis previously. He is unclear if he is ever had bronchoscopy. He was admitted to the hospitalist service and placed on Rocephin and azithromycin for pneumonia. His white blood cell count was elevated. He is currently sitting up eating breakfast and appears in no acute respiratory distress. Allergies Allergy/AdvReac Type Severity Reaction Status Date / Time beclomethasone [From Qvar] Allergy Unknown Unverified 08/24/19 15:09 oxycodone Allergy Hallucinati Unverified 08/24/19 15:09 ng pravastatin [From Pravachol] AdvReac Cramping Unverified 08/24/19 15:09 of the Muscles Home Medications Home Medications Medication Instructions Recorded Confirmed Type Oxygen Home 08/24/19 08/24/19 History albuterol sulfate 2 puff INHALATION Q6H PRN 08/24/19 08/24/19 History albuterol sulfate 2.5 mg INHALATION QID PRN 08/24/19 08/24/19 History allopurinol 300 mg PO QAM 08/24/19 08/24/19 History aspirin 81 mg PO QAM 08/24/19 08/24/19 History azithromycin 250 mg PO UD 08/24/19 08/24/19 History cholecalciferol (vitamin D3) 5,000 unit PO QAM 08/24/19 08/24/19 History [Vitamin D3] clopidogrel 75 mg PO QAM 08/24/19 08/24/19 History fluticasone propion-salmeterol 1 inh INHALATION BID 08/24/19 08/24/19 History [Advair Diskus] guaifenesin 1,200 mg PO BID 08/24/19 08/24/19 History isosorbide mononitrate 30 mg PO QAM 08/24/19 08/24/19 History levothyroxine 150 mcg PO QAM 08/24/19 08/24/19 History lisinopril 20 mg PO QAM 08/24/19 08/24/19 History metformin 1,000 mg PO BIDM 08/24/19 08/24/19 History metoprolol succinate 50 mg PO QAM 08/24/19 08/24/19 History montelukast [Singulair] 10 mg PO PM 08/24/19 08/24/19 History pantoprazole [Protonix] 40 mg PO HS 08/24/19 08/24/19 History prednisone 10 mg PO QAM 08/24/19 08/24/19 History roflumilast [Daliresp] 250 mcg PO QAM 08/24/19 08/24/19 History rosuvastatin [Crestor] 10 mg PO UD 08/24/19 08/24/19 History tiotropium bromide [Spiriva with 1 cap INHALATION DAILY 08/24/19 08/24/19 History HandiHaler] trazodone 50 mg PO HS 08/24/19 08/24/19 History vitamin B complex 1 cap PO QAM 08/24/19 08/24/19 History Patient History Medical History (Updated 08/24/19 @ 16:55 by Susan Lee) CAD (coronary artery disease) COPD (chronic obstructive pulmonary disease) O2 at 2L HS Diabetes mellitus, type II Dyslipidemia GERD (gastroesophageal reflux disease) Gout History of [place] (myocardial infarction) HTN (hypertension) Hypothyroidism Surgical History (Updated 08/24/19 @ 16:52 by Elenita Justin PA-C) H/O heart artery stent History of appendectomy History of cardiac cath 11/17/08, 11/29/2009 Reports stents x 4 History of cataract surgery right eye History of eye surgery left eye. foreign body Family History (Updated 08/24/19 @ 16:54 by Elenita Justin PA-C) Brother Diabetes Skin cancer Coronary heart disease Sister Coronary heart disease Social History (Updated 08/24/19 @ 16:55 by Elenita Justin PA-C) Preferred Language: Montserratian Communication Ability: Effective Binder Chainstitch Required: No Beliefs That Will Affect Care: None marital status: Current Living Situation: Spouse current occupational status: retired Other Information That Helps Us Care for You: No Feels Safe at Home: Yes Safety Concerns: Feels Safe At This Time Smoking Status: Former smoker Smoking End Date: Quit 2008. Previously smoked 1.5ppd x 50 years ; Hx Alcohol Use: No Hx Substance Use: No Review of Systems Review of Systems: Complete 12 point review systems completed with the patient. Please refer to the admission H&P. I have no additions or deletions. Physical Exam Constitutional: WD/WN, vitals as above Neck: trachea midline, no thyromegaly Respiratory: Breath sounds are diminished bilaterally. Few crackles at the right lung base without wheezing Cardiovascular: RRR, no murmur, no edema Gastrointestinal (Abdomen): normal bowel sounds, soft, nontender, no hepatosplenomegaly Musculoskeletal: Extremities: extremities normal to inspection Skin: no rashes, warm and dry Neurologic: Nonfocal exam Lymphatic: no cervical lymphadenopathy Results & Data Vital Signs (Past 12 Hours) Vital Signs Temp Pulse Pulse Resp BP Pulse Ox 08/25/19 07:55 36.6 C 90 18 132/79 91 08/25/19 07:10 67 18 97 08/25/19 04:10 37.0 C 69 16 112/61 94 08/25/19 00:08 74 08/24/19 23:08 36.9 C 73 18 156/81 H 96 Laboratory Results 08/25/19 07:20 08/25/19 07:20 Influenza swabs negative Diagnostic Findings Films independently reviewed. CT of the chest from 08/24/2019 demonstrated bronchiectasis within the right middle lobe with some patchy airspace opacity in the right middle lobe and right lower lobe. No obvious endobronchial lesions identified. PG Care Time/CCT Total # of Minutes Spent Total Time Spent with Patient: Total time spent is greater than 50% in coordination of care (as documented) at patient's floor/unit and/or counseling patient:
[2019-08-25] MEDS: INSULIN ASPART 100 UNITS/ML 3 ML PEN SC SCH ×3 (08:47→17:27)
[2019-08-25] MEDS ORDERED: ROFLUMILAST 500 MCG TAB PO SCH (09:00)
[2019-08-25] MEDS ORDERED: VITAMIN B COMPLEX TAB PO SCH (09:00)
[2019-08-25] MEDS ORDERED: CHOLECALCIFEROL 1,000 UNITS TAB PO SCH (09:00)
[2019-08-25] MEDS ORDERED: METOPROLOL SUCC 50MG EXT REL TAB PO SCH (09:00)
[2019-08-25] MEDS ORDERED: predniSONE 10 MG TABLET PO SCH (09:00)
[2019-08-25] MEDS ORDERED: lisinopriL 20 MG TAB PO SCH (09:00)
[2019-08-25] MEDS ORDERED: CLOPIDOGREL BISULFATE 75 MG TAB PO SCH (09:00)
[2019-08-25] MEDS ORDERED: AZITHROMYCIN 500 MG in DEXTROSE 5% 250 ML IV SCH (09:00)
[2019-08-25] MEDS ORDERED: allopurinoL 300 MG TAB PO SCH (09:00)
[2019-08-25] MEDS ORDERED: ASPIRIN 81 MG ECTAB PO SCH (09:00)
[2019-08-25] MEDS ORDERED: ISOSORBIDE MONO EXTENDED REL 30 MG TABCR PO SCH (09:00)
[2019-08-25] MEDS ORDERED: cefTRIAXone SODIUM 1,000 MG in DEXTROSE 5% 50 ML IV SCH (11:00)
[2019-08-25] MEDS ORDERED: POTASSIUM CHLORIDE 20 MEQ TABCR PO ONE (14:00)
--- NOTE | 2019-08-25 16:27 | Hospitalist Progress Note ---
Date of Service August 25, 2019 Assessment & Plan (1) Hemoptysis: (2) Pneumonia: Pt is 78 y/o M with PMH COPD on 2L oxygen HS, CAD, [place] s/p stents x 4 (11/17/08 & 11/29/2009), HTN, dyslipidemia, hypothyroidism, GERD, gout, hypothyroidism, basal cell skin carcinoma presented to ER with complaint of hemoptysis today. Reports approx 13 episodes of hemoptysis starting with pink tinged sputum and last episode red blood clot. Patient reports chronic baseline white productive cough and denies any increased cough or sputum production. Denies fever/chills increased SOB or CP. Negative influenza swab CTA CHEST showed no evidence for pulmonary embolus. Diffuse parenchymal infiltrate of the right lower lobe and to a lesser extent medial right middle lobe. Received Rocephin and Levaquin in the ER Blood cx and sputum cx pending On IV Rocephin and Azithromycin Pulmonology on board recommended treating him with a full course of antibiotics. No bronch at this time since hemoptysis improves Will need to follow with his pulmonology in [place] from pulmonology standpoint to discharge home today Will discharge on Cefdinir and Azithromycin His cultures pending, but he is very anxious to discharge today Saturated on RA and has been walking in the hallway Will give pt a copy of his CT chest to bring to his tutor coordinator in [place] Continue oxygen at night (3) COPD (chronic obstructive pulmonary disease): Continue chronic prednisone 10 mg daily, Singulair, home inhalers Continue supplemental oxygen at bedtime Cliniacally stable (4) Diabetes mellitus, type II: Hba1c 6.4 On NovoLog sliding scale per protocol Resume metformin on discharge (5) CAD (coronary artery disease): H/O [place]. S/P stent x 4 in 11/17/2008, 11/29/[address] changes Troponin negative on admission Continue isosorbide, metoprolol and Crestor Continue Plavix, aspirin Stable (6) HTN (hypertension): BP stable Continue lisinopril, metoprolol (7) Dyslipidemia: Continue Crestor (8) Hypothyroidism: TSH WNL Continue levothyroxine (9) Gout: Continue allopurinol (10) GERD (gastroesophageal reflux disease): Continue PPI DVT Prophylaxis On SCD/Ambulates CODE STATUS Full Code Follows with Dr Minh Lucio in [place] for routine care Follows with Dr Vargas Clarke in [place] for pulmonology Subjective Pt was seen and examined. Sitting in bed with no distress Pt is very anxious to go home today since he is driving back to his home in [place] on Thursday He said that the cough improves significantly He said that when he coughs, and spitted that he can see a trace of blood in the sputum Denies any chest pain, palpitation, dizziness and SOB Physical Exam Physical Exam: General- No acute distress Head- atraumatic Eyes- PERRL, EOMI, ENT- oropharynx clear Neck- supple, no JVD Lungs- Diminished BS Heart- regular rhythm; no murmur Abdomen- normal bowel sounds, soft, nontender Extremities- no calf tenderness Neuro- alert, oriented x 3; PERRL, EOMI; no facial palsy; no dysarthria Skin- warm & dry Results & Data Vital Signs (Past 12 Hours) Vital Signs Temp Pulse Resp BP Pulse Ox 08/25/19 15:36 36.8 C 74 20 117/71 93 08/25/19 15:13 87 18 92 08/25/19 11:23 36.8 C 89 18 102/61 92 08/25/19 11:05 88 18 93 08/25/19 07:55 36.6 C 90 18 132/79 91 08/25/19 07:10 67 18 97 (1) Pneumonia Laterality: right Lung location: lower lobe of lung Pneumonia type: due to unspecified organism Qualified Code(s): J18.9 - Pneumonia, unspecified organism
[2019-08-26] MEDS ORDERED: CEFDINIR 300 MG CAP PO SCH (09:00)
--- NOTE | 2019-08-27 08:32 | Discharge Summary ---
Date of Service August 25, 2019 Admission HPI Per Admitting Provider Pt is 78 y/o M with PMH COPD on 2L oxygen HS, CAD, [place] s/p stents x 4 (11/17/08 & 11/29/2009), HTN, dyslipidemia, hypothyroidism, GERD, gout, hypothyroidism, basal cell skin carcinoma presented to ER with complaint of hemoptysis. Patient reports chronic baseline white productive cough and denies any increased cough or sputum production. Patient states today started with hemoptysis which appeared to be pink-tinged mixed in sputum approximately the size of a quarter and has had approximately 13 episodes of this. Reports last episode of hemoptysis appeared like red blood clot. Denies any increased shortness of b reath. Reports chronic wheezing at baseline. States during day oxygen sats on home pulse oximeter are 92-93% on room air. Denies any chest pain. Patient reports recently COPD has seemed controlled and has not had to use albuterol for 1 month. States last COPD flare was in November 2018 which required hospitalization. Has been on chronic prednisone 10 mg daily and Zithromax 250 mg 3 times a week. Patient is from [place] and traveled to [place] 08/17/2019 and reports took 2 [address] time in car with frequent stops. Denies history DVT, PE. Denies recent surgery, injury, trauma. Reports chronic intermittent loose stools, denies any recent changes or melena, hematochezia. Denies ill contacts. Denies fever/chills, diaphoresis, N/V/C, ELISE, dizziness, syncope, vision changes, neck pain, palpitations, sore throat, choking, otalgia, rhinorrhea, abdominal pain, paresthesias, weakness, extremity weakness, extremity edema, rashes, urinary symptoms. Quit smoking 10 years ago. Previous 1.5ppd x 50 years PCP: Dr Lucio Prn Physical Therapist: Dr Clarke Boring Machine Operator Helper: Dr Riley Admission Exam Per Admitting Provider General: no acute distress, WDWN Head: normocephalic, atraumatic Eyes: Left pupil irregular (chronic) R PERRL, EOM's intact, conjunctiva non- injected, anicteric ENT: normal inspection external ears, nose, mucous membranes moist Neck: supple, trachea midline Lungs: Scattered wheezing throughout, slightly diminished breath sounds right base, no respiratory distress, R: 20, 93% on RA CV: RRR, no murmur, no pretibial edema Abd: normal BS, soft, non-tender Ext: no cyanosis, no calf tenderness Neuro: A&O x 3, no focal deficits noted, normal affect Skin: warm, dry Principal Diagnosis Pneumonia Hemoptysis COPD COPD (chronic obstructive pulmonary disease) Diabetes mellitus, type II CAD (coronary artery disease) HTN (hypertension) Dyslipidemia Hypothyroidism Discharge Exam General- No acute distress Head- atraumatic Eyes- PERRL, EOMI, ENT- oropharynx clear Neck- supple, no JVD Lungs- Diminished BS Heart- regular rhythm; no murmur Abdomen- normal bowel sounds, soft, nontender Extremities- no calf tenderness Neuro- alert, oriented x 3; PERRL, EOMI; no facial palsy; no dysarthria Skin- warm & dry Discharge Data Allergies Allergy/AdvReac Type Severity Reaction Status Date / Time beclomethasone [From Qvar] Allergy Unknown Unverified 08/24/19 15:09 oxycodone Allergy Hallucinati Unverified 08/24/19 15:09 ng pravastatin [From Pravachol] AdvReac Cramping Unverified 08/24/19 15:09 of the Muscles Consultations 08/24/19 15:05 ED Decision to Admit Stat 08/24/19 18:26 Consult Case Management - Discharge Planning Routine Consult Pulmonology Routine 08/25/19 16:59 Burn CD for patient Routine Ordered Studies 08/24/19 13:05 CT angio chest PE protocol Stat XR chest 1V portable CLINICAL HISTORY: Dyspnea COMPARISON STUDY: CT scan dated 08/24/2019 FINDINGS: The heart is enlarged. There are old right-sided rib fractures. There is radiographic evidence of emphysema.[There are right lower lobe airspace opacities, suspicious for pneumonia. Films subsequent to treatment are recommended in follow-up. There is blunting of the right lateral costophrenic angle and a trace effusion cannot be excluded. IMPRESSION: 1. Cardiomegaly and pulmonary emphysema 2. Right lower lung zone airspace opacity suspicious for a pneumonia. Imaging subsequent to treatment is recommended in follow-up Electronically signed by: Augustine Sepulveda M.D. 08/24/2019 4:38 PM Dictated: 08/24/19 1636 Transcribed: 08/24/[address] angio chest PE protocol CT DOSE: 524.77 mGycm HISTORY: Dyspnea Persistent hemoptysis with recent travel TECHNIQUE: Multiaxial CT images of the chest were performed following the intravenous administration of contrast to evaluate the pulmonary arteries. Maximal intensity projection images were also obtained. A dose lowering technique was utilized adhering to the principles of ALARA. COMPARISON STUDY: None. FINDINGS: Thoracic aorta shows minimal atherosclerotic change. The pulmonary vasculature enhances appropriately. There are no filling defects. There are findings of a diffuse parenchymal infiltrate involving the right lower lobe. There is less prominent involvement and/or atelectatic change of the components of the right middle lobe. Lungs otherwise appear clear. IMPRESSION: 1. No evidence for pulmonary embolus. 2. Diffuse parenchymal infiltrate of the right lower lobe and to a lesser extent medial right middle lobe. The above report was generated using voice recognition software. It may contain grammatical, syntax or spelling errors. Electronically signed by: Gus Mcnally M.D. 08/24/2019 2:06 PM Dictated: 08/24/19 1402 Transcribed: 08/24/19 1402 Hospital Course (1) Hemoptysis: (2) Pneumonia: Pt is 78 y/o M with PMH COPD on 2L oxygen HS, CAD, [place] s/p stents x 4 (11/17/08 & 11/29/2009), HTN, dyslipidemia, hypothyroidism, GERD, gout, hypo thyroidism, basal cell skin carcinoma presented to ER with complaint of hemoptysis today. Reports approx 13 episodes of hemoptysis starting with pink tinged sputum and last episode red blood clot. Patient reports chronic baseline white productive cough and denies any increased cough or sputum production. Denies fever/chills increased SOB or CP. Negative influenza swab CTA CHEST showed no evidence for pulmonary embolus. Diffuse parenchymal infiltrate of the right lower lobe and to a lesser extent medial right middle lobe. Received Rocephin and Levaquin in the ER Blood cx and sputum cx pending On IV Rocephin and Azithromycin Pulmonology on board recommended treating him with a full course of antibiotics. No bronch at this time since hemoptysis improves Will need to follow with his pulmonology in [facility] from pulmonology standpoint to discharge home today Will discharge on Cefdinir and Azithromycin His cultures pending, but he is very anxious to discharge today Saturated on RA and has been walking in the hallway Will give pt a copy of his CT chest to bring to his medical laboratory specialist in [place] Continue oxygen at night (3) COPD (chronic obstructive pulmonary disease): Continue chronic prednisone 10 mg daily, Singulair, home inhalers Continue supplemental oxygen at bedtime Cliniacally stable (4) Diabetes mellitus, type II: Hba1c 6.4 On NovoLog sliding scale per protocol Resume metformin on discharge (5) CAD (coronary artery disease): H/O [place]. S/P stent x 4 in 11/17/2008, 11/29/[address] changes Troponin negative on admission Continue isosorbide, metoprolol and Crestor Continue Plavix, aspirin Stable (6) HTN (hypertension): BP stable Continue lisinopril, metoprolol (7) Dyslipidemia: Continue Crestor (8) Hypothyroidism: TSH WNL Continue levothyroxine (9) Gout: Continue allopurinol (10) GERD (gastroesophageal reflux disease): Continue PPI DVT Prophylaxis On SCD/Ambulates CODE STATUS Full Code Follows with Dr Minh Lucio in [place] for routine care Follows with Dr Vargas Clarke in [place] for pulmonology Total Time Total Time Spent Total Time Spent (In Minutes): 35 minutes Total Time Includes: Examination of the Patient, Discharge Planning, Medication Reconciliation, Communication With Other Providers and Other Discharge Plan Discharge Items Patient Disposition: Home - Self-Care Reason For Visit: HEMOPTYSIS, PNEUMONIA Discharge Diagnosis: Pneumonia Hemoptysis COPD COPD (chronic obstructive pulmonary disease) Diabetes mellitus, type II CAD (coronary artery disease) HTN (hypertension) Dyslipidemia Hypothyroidism Activity: Resume your previous activity Activity Comment: as tolerated Non-emergency contact: Primary Care Provider and Prn Physical Therapist Call non-emergency contact if: you have any medication questions and your temperature is above 101 Follow-up/Referrals: Minh Lucio MD [Primary Care Provider] - Diet: Heart Healthy Addtl Attending Provider Instructions: Please call to schedule follow up appointment with your primary care provider within 1 week Please call to schedule follow up appointment with your lung specialist Complete the course of antibiotic with Cefdinir and Azithromycin Continue oxygen supplement at night Seek medical attention if develop shortness of breath and fever Since you received contrast during the CAT scan of the chest, please hold metformin for tonight Ok to resume metformin tomorrow Please give your medical laboratory specialist a copy of your CT chest result Pending Studies at Discharge: Yes (Sputum and blood culture pending) Stand-Alone Forms: [facility], Smoking Cessation Medications and DC Order Prescriptions: New cefdinir 300 mg Capsule 300 mg PO Q12 5 Days Qty: 10 RF: 0 azithromycin 500 mg tablet 500 mg PO DAILY 5 Days Qty: 5 RF: 0 Continued prednisone 10 mg Tablet 10 mg PO QAM RF: 0 trazodone 50 mg Tablet 50 mg PO HS RF: 0 azithromycin 250 mg Tablet 250 mg PO UD RF: 0 metoprolol succinate 50 mg Tablet Extended Release 24 Hr 50 mg PO QAM RF: 0 lisinopril 20 mg Tablet 20 mg PO QAM RF: 0 isosorbide mononitrate 30 mg Tablet Extended Release 24 Hr 30 mg PO QAM RF: 0 clopidogrel 75 mg Tablet 75 mg PO QAM RF: 0 aspirin 81 mg Tablet,Delayed Release (Dr/Ec) 81 mg PO QAM RF: 0 pantoprazole [Protonix] 40 mg Tablet,Delayed Release (Dr/Ec) 40 mg PO HS RF: 0 metformin 1,000 mg Tablet 1,000 mg PO BIDM RF: 0 levothyroxine 150 mcg Tablet 150 mcg PO QAM RF: 0 fluticasone propion-salmeterol [Advair Diskus] 500-50 mcg/dose Blister With Device 1 inh INHALATION BID RF: 0 montelukast [Singulair] 10 mg Tablet 10 mg PO PM RF: 0 allopurinol 300 mg Tablet 300 mg PO QAM RF: 0 vitamin B complex Capsule 1 cap PO QAM RF: 0 rosuvastatin [Crestor] 10 mg Tablet 10 mg PO UD RF: 0 Spiriva with HandiHaler 18 mcg Capsule, W/Inhalation Device 1 cap INHALATION DAILY RF: 0 cholecalciferol (vitamin D3) [Vitamin D3] 125 mcg (5,000 unit) Tablet 5,000 unit PO QAM RF: 0 Daliresp 250 mcg Tablet 250 mcg PO QAM RF: 0 (DME) Oxygen Home Liters Per Minute RF: 0 albuterol sulfate 2.5 mg /3 mL (0.083 %) Solution For Nebulization 2.5 mg INHALATION QID PRN (Reason: Shortness Of Breath Or Wheezing) RF: 0 albuterol sulfate 90 mcg/actuation Hfa Aerosol Inhaler 2 puff INHALATION Q6H PRN (Reason: Shortness Of Breath Or Wheezing) RF: 0 guaifenesin 1,200 mg Tablet Extended Release 12hr 1,200 mg PO BID RF: 0 Discharge Orders: Discharge Order (Routine); Ordered 08/25/19 Ordered By: Edil Salvador Admission Data Admit Date/Time: 08/24/19 16:40 Attending Provider: Edil Salvador Admit Provider: Marj Rubio Primary Care Provider: Minh Lucio Other Providers: Marj Rubio ; Bill White Other Interventions: Discharge Summary Assessment (RN) Last Done: 08/25/19 17:26 DC Date/Time DO NOT enter until pt leaves facility: 08/25/19 17:59
== END 2019-08-25 17:59 | disposition home or self-care (01) | DRG 194 ==
LOC: ED 12:38 → 2N 16:40 → SUATTDRO 16:40 → 2N 17:45